=== PATIENT | female | born 1985 | race Caucasian/White ===

== ENCOUNTER → 2025-03-25 | Outpatient (CLI) | payer OTHER | LOC: M CARPUL 15:03 | PROVIDERS: ATTEND Internal Medicine | DX: R01.1 Cardiac murmur, unspecified (principal) ==

== ENCOUNTER 2025-04-16 08:41 | Day surgery (SDC) | payer OTHER ==
[~2025-04-16] VITALS: Ht 160 cm; Wt 59.2 kg
[~2025-04-16 08:41] MED LIST: ADDE10CA3 PO; MIRA3350 PO; SENN-186 PO; THERTAB52 PO; VALT500T PO; VENTAER INH
[2025-04-16] MEDS ORDERED: LIDOCAINE 2% 100 MG/5 ML SDV (FOR ANES.) As Ordered ONE (09:04)
[2025-04-16 09:24] VITALS: TEMP 97.8
[2025-04-16 09:39] VITALS: BP 120/59; O2SAT 98
== END 2025-04-16 09:47 | disposition home or self-care (01) ==
LOC: M OPP 08:41 → EDUNIT# 05-14 11:00
PROVIDERS: ATTEND Surgery
DX: K64.0 First degree hemorrhoids (principal); K92.1 Melena; J45.909 Unspecified asthma, uncomplicated; Z91.040 Latex allergy status; Z79.899 Other long term (current) drug therapy